=== PATIENT | male | born 1975 | race Caucasian/White ===

== ENCOUNTER 2021-08-16 03:40 | Emergency (ER) | payer OTHER ==
[~2021-08-16] VITALS: Ht 177.8 cm; Wt 74.8 kg
--- NOTE | 2021-08-16 04:08 | NUR ---
TO LOBBY FOLLOWING TRIAGE AND STATES "I'M GOING OUTSIDE TO SMOKE"
--- NOTE | 2021-08-16 04:59 | NUR ---
CALLED PT TO BE EVALUATED PER MD. CALLED IN LOBBY AND OUTSIDE. NO ANSWER. LWBS
== END 2021-08-16 04:59 | disposition left against medical advice (07) ==
LOC: MED 03:40
DX: R11.10 Vomiting, unspecified (principal); K64.9 Unspecified hemorrhoids; Z53.21 Procedure and treatment not carried out due to patient leaving prior to being seen by health care provider

== ENCOUNTER 2023-01-05 19:12 | Emergency (ER) | payer OTHER ==
[~2023-01-05] VITALS: Ht 182.9 cm; Wt 77.1 kg
[2023-01-05 19:35] VITALS: BP 160/105; PULSE 118; RESP 16; TEMP 97.4; O2SAT 97
[2023-01-05 19:45] VITALS: BP 145/115; PULSE 110; RESP 17; TEMP 98.1; O2SAT 97
== END 2023-01-05 19:57 | disposition left against medical advice (07) ==
LOC: MED 19:12
DX: F20.9 Schizophrenia, unspecified (principal); Z79.899 Other long term (current) drug therapy
CPT/HCPCS: 99283